=== PATIENT | female | born 1985 | race African-American/Black ===

== ENCOUNTER 2021-06-22 10:17 | Emergency (ER) | payer SELFPAY ==
[~2021-06-22] VITALS: Ht 170.2 cm; Wt 59.0 kg
[2021-06-22] MEDS ORDERED: IBUPROFEN 600 MG TABLET PO ONE (11:00)
[2021-06-22] MEDS ORDERED: IBUPROFEN 600 MG TABLET ONE (11:08)
--- NOTE | 2021-06-22 11:23 | NUR ---
Pt to x-ray, NAD noted.
[2021-06-22] MEDS ORDERED: IV NORMAL SALINE 1000 ML BAG IV ONE ×2 (11:30→12:00)
[2021-06-22] MEDS ORDERED: LORAZEPAM 2 MG/1 ML VIAL IV ONE (11:30)
--- NOTE | 2021-06-22 11:40 | NUR ---
Pt back from x-ray.
[2021-06-22 11:50] LABS: HEMATOCRIT 31.2 % (31.2-41.9); MEAN CORPUSCULAR HEMOGLOBIN 24.6 uug (24.7-32.8); MEAN CORPUSCULAR VOLUME 72.6 fL (75.5-95.3); PLATELET COUNT (AUTO) 434 K/uL (179-408)
--- NOTE | 2021-06-22 11:50 | NUR ---
Pt placed on hands assembler, BP and cont pulse ox. Pt refused saline lock/IVF at this time, pt stated she would like to wait until her blood results are back and then discuss with the ER doctor. NAD noted at this time.
[2021-06-22 11:56] LABS: CREATININE 0.7 mg/dL (0.6-1.3); POTASSIUM 3.9 mmol/L (3.5-5.1)
[2021-06-22] MEDS ORDERED: DOXYCYCLINE HYCLATE IV 200 MG in IV DEXTROSE 5% 250 ML IV ONE (12:00)
[2021-06-22] MEDS ORDERED: CEFEPIME HCL 2 G in IV DEXTROSE 5% 100 ML IV ONE (12:00)
[2021-06-22] MEDS ORDERED: ACETAMINOPHEN ES 500 MG TABLET PO ONE (12:00)
[2021-06-22 12:05] LABS: BILIRUBIN,DIRECT 0.3 mg/dL (0.0-0.2); BILIRUBIN,TOTAL 0.9 mg/dL (0.2-1.0); TOTAL PROTEIN, SERUM 7.9 g/dL (6.4-8.2)
[2021-06-22 12:13] LABS: MAGNESIUM 2.3 mg/dL (1.8-2.4); PHOSPHOROUS 3.6 mg/dL (2.5-4.9)
[2021-06-22] MEDS ORDERED: ENOXAPARIN SODIUM 60 MG/0.6 ML DISP.SYRIN SQ ONE (12:30)
--- NOTE | 2021-06-22 12:30 | NUR ---
Pt states she is not sure if she wants the CTA chest, IV antibiotics and other tests at this time, pt states she wants time to think it over.
[2021-06-22] MEDS ORDERED: IOHEXOL 350 100 ML INFUS..BTL ONE (12:36)
[2021-06-22] MEDS ORDERED: SWABABLE VALVE TRANSFER SET EA MC ONE (12:36)
[2021-06-22] MEDS ORDERED: IV NORMAL SALINE 250 ML IV ONE (12:36)
[2021-06-22] MEDS ORDERED: IBUP-1955 PO (13:02)
[2021-06-22] MEDS ORDERED: LEVO750T46 PO (13:02)
[2021-06-22] MEDS ORDERED: APIX5TAB PO (13:02)
--- NOTE | 2021-06-22 13:21 | NUR ---
Patient discharged to home in stable condition. Written and verbal after care instructions given. Patient verbalizes understanding of instructions. Stressed follow up or return to ER for worsening s/s.
== END 2021-06-22 13:21 | disposition left against medical advice (07) ==
LOC: ER 10:17
DX: A41.9 Sepsis, unspecified organism (principal); J18.9 Pneumonia, unspecified organism; J91.8 Pleural effusion in other conditions classified elsewhere; Z20.822 Contact with and (suspected) exposure to COVID-19; R00.0 Tachycardia, unspecified; R94.31 Abnormal electrocardiogram [ECG] [EKG]; Z53.29 Procedure and treatment not carried out because of patient's decision for other reasons; J81.0 Acute pulmonary edema; I45.10 Unspecified right bundle-branch block; D64.9 Anemia, unspecified; R79.1 Abnormal coagulation profile
CPT/HCPCS: 36415; 71046; 80048; 80076; 80307; 83605; 83690; 83735; 83880; 84100; 84484; 84702; 85025; 85379; 87040 ×2; 87426; 93005; 99291; Q9967; 70030-TC; A4663; J7030; J7050